=== PATIENT | female | born 1995 | race Caucasian/White ===

== ENCOUNTER 2018-01-21 19:06 | Inpatient (IN) | payer OTHER ==
[2018-01-21] MEDS ORDERED: PROMETHAZINE HCL 25 MG/1 ML VIAL IVPUSH ONE (20:22)
[2018-01-21] MEDS ORDERED: BUTORPHANOL TARTRATE 1 MG/ML VIAL IVPB ONE (20:30)
[2018-01-21 20:48] LABS: BASO % 0.2 % (0-2.0); EOS % 0.4 % (0-4.5); HEMOGLOBIN 12.2 GM/dL (10.7-15.3); LYMPH % 20.9 % (8-40); MCH 31.7 pg (25.7-33.7); MCHC 34.7 g/dl (32.0-36.0); MEAN CELL VOLUME 91.3 fl (80-96); MEAN PLT VOLUME 9.6 fl (7.5-11.1); MONO % 7.8 % (3.8-10.2); NEUT % 70.7 % (42.8-82.8); PLATELET COUNT 230 K/MM3 (134-434); RBC 3.83 M/mm3 (3.60-5.2); RDW 13.7 % (11.6-15.6); WHITE BLOOD COUNT 9.9 K/mm3 (4.0-10.0)
[2018-01-21 20:58] LABS: INR 0.91 (0.82-1.09); PROTHROMBIN TIME (PATIENT) 10.3 SEC (9.7-13.0)
[2018-01-21 20:59] VITALS: BMI 37.4
[2018-01-21 21:01] LABS: ACTIVATED PTT 25.1 SECONDS (25.2-36.5)
[2018-01-21 21:06] LABS: ANION GAP 12 (8-16); BLOOD UREA NITROGEN 16 mg/dL (7-18); CHLORIDE 108 mmol/L (98-107); CO2 22 mmol/L (21-32); CREATININE 0.8 mg/dL (0.55-1.02); GLUCOSE,RANDOM 130 mg/dL (74-106); POTASSIUM 4.1 mmol/L (3.5-5.1); SODIUM 142 mmol/L (136-145)
[2018-01-21] MEDS ORDERED: DINOPROSTONE 10 MG VAGINAL SUPPOSITORY VG ONE (21:15)
[2018-01-21] MEDS ORDERED: TUBERCULIN PPD 5 TU/0.1ML SYRINGE (IN PATIENT USE ONLY) ID ONE (21:45)
[2018-01-21] MEDS: DEXTROSE 5%-LACTATED RINGERS 1,000 ML IV SCH (22:02)
--- NOTE | 2018-01-21 22:06 | HP ---
Past Medical History - Admission Chief Complaint: Here for elective labor induction. History of Present Illness: 22 y/o with SIUP at 39 weeks here for elective labor induction. complicated by obesity. PT with some pruritis, negative Bile acids X 2. Otherwise no complaints/issues. History Source: Patient, Medical Record Limitations to Obtaining History: No Limitations - Past Medical History Cardiovascular: No: HTN Pulmonary: No: Asthma Gastrointestinal: No: GERD, Inflamatory Bowel Disease ...: 1 ...Para: 0 ...Term: 0 ...: 0 ...Spon : 0 ...Induced : 0 ...Multiple Gestation: 0 ...LMP: 04/09/17 ... Weeks Gestation by Dates: 41.0 ...EDC by Dates: 01/14/18 ...EDC by Sono: 01/27/18 Infectious Disease: No: HIV, MRSA, STD's Psych: No: Bipolar, Depression - Past Surgical History Past Surgical History: Yes: None Hx Myomectomy: No Hx Transabdominal Cerclage: No - Smoking History Smoking history: Never smoked Have you smoked in the past 12 months: No - Alcohol/Substance Use Hx Alcohol Use: No History of Substance Use: reports: None - Social History History of Recent Travel: No Home Medications - Allergies Allergies/Adverse Reactions: Allergies Allergy/AdvReac Type Severity Reaction Status Date / Time No Known Allergies Allergy Verified 01/22/18 09:57 - Home Medications Home Medications: Ambulatory Orders NK [No Known Home Medication] 01/22/18 Review of Systems - Review of Systems Constitutional: reports: No Symptoms Eyes: reports: No Symptoms HENT: reports: No Symptoms Neck: reports: No Symptoms Cardiovascular: reports: No Symptoms Respiratory: reports: No Symptoms Gastrointestinal: reports: No Symptoms Genitourinary: reports: No Symptoms Breasts: reports: No Symptoms Reported Musculoskeletal: reports: No Symptoms Integumentary: reports: No Symptoms Neurological: reports: No Symptoms Endocrine: reports: No Symptoms Hematology/Lymphatic: reports: No Symptoms Psychiatric: reports: No Symptoms Physical Exam - Maternity Vital Signs: Vital Signs Temperature 98.2 F 01/21/18 19:06 Pulse Rate 91 H 01/21/18 19:06 Respiratory Rate 20 01/21/18 19:06 Blood Pressure 139/84 01/21/18 19:06 O2 Sat by Pulse Oximetry (%) Constitutional: Yes: Well Nourished, No Distress, Calm Eyes: Yes: WNL HENT: Yes: WNL Neck: Yes: WNL Breast(s): Yes: WNL - Abdominal Exam/OB Fundal Height: 39 Number of Fetuses: Single Presentation: Vertex Contractions: No Category: I Accelerations: Uniform Decelerations: None - Vaginal Exam/OB Vaginal Bleediing: No Dilatation (cm): 1 Effacement (%): 70 Amniotic Membrane Status: Intact Presentation: Vertex/Position - Physical Exam Extremities: Yes: WNL Edema: LLE: Trace, RLE: Trace Psychiatric: Yes: Alert, Oriented - Labs Lab Results: CBC, BMP 01/21/18 20:20 01/21/18 20:20 Hemorrhage Risk Assessment - Risk Factors Medium Risk Factors: Yes: None High Risk Factors: Yes: None Risk Score: 1 Risk Level: Medium Risk Problem List - Problems (1) Term Code(s): Z34.80 - ENCOUNTER FOR SUPRVSN OF NORMAL , UNSP TRIMESTER (2) Elective induction of labor planned Code(s): JMM6077 - (3) Encounter for induction of labor Code(s): Z34.90 - ENCNTR FOR SUPRVSN OF NORMAL , UNSP, UNSP TRIMESTER Assessment/Plan SIUP at 39 weeks, elective labor induction FHTs category 1 cervidil placed at 1930
[2018-01-22] MEDS: PRENATAL VITAMINS W/ FOLIC ACID TABLET (FP) PO SCH (09:46)
[2018-01-22] MEDS ORDERED: DHA PO SCH (10:00)
[2018-01-22] MEDS ORDERED: DSS PO SCH (10:00)
[2018-01-22] MEDS: DEXTROSE 5%-LACTATED RINGERS 1,000 ML IV SCH ×2 (10:00→16:00)
[2018-01-22] MEDS ORDERED: [UNRECOGNIZED DRUG - OTHER] PO SCH (10:00)
--- NOTE | 2018-01-22 10:11 | PN ---
Ante-Partal Exam - Subjective Subjective: Pt felt cramping with cervidil overnight. Having slight cramping now. Vital Signs: Vital Signs Temperature 98.0 F 01/22/18 08:00 Pulse Rate 83 01/22/18 09:00 Respiratory Rate 18 01/22/18 09:00 Blood Pressure 119/80 01/22/18 09:00 O2 Sat by Pulse Oximetry (%) Bleeding: No Headache: No Visual changes: No Right upper quadrant pain: No Pain (scale 1-10): 1 - Contractions Contractions: Yes Regularity: Irregular - Exam during Labor Heart Rate: 145 Variability: Moderate Category: I Monitor Decelerations: None Exam: Vaginal Dilatation (cm): 2.5 Effacement (%): 90 Amniotic Membrane Status: Intact Presentation: Vertex Station: -2 - Assessment/Plan Assessment/Plan: FHR cat 1 to start pitocin
[2018-01-22] MEDS ORDERED: OXYTOCIN 30 UNITS in 0.9% NS 30 UNIT/500 ML INFUS.BAG IVPB ONE (10:29)
[2018-01-22] MEDS: OXYTOCIN 30 UNITS in 0.9% NS 30 UNIT/500 ML INFUS.BAG IVPB SCH (10:30)
[2018-01-22] MEDS ORDERED: BUTORPHANOL TARTRATE 1 MG/ML VIAL ONE ×2 (22:27)
[2018-01-22] MEDS ORDERED: PROMETHAZINE HCL 25 MG/1 ML VIAL ONE (22:27)
[2018-01-23] MEDS: DEXTROSE 5%-LACTATED RINGERS 1,000 ML IV SCH ×2 (01:20→09:44)
[2018-01-23] MEDS ORDERED: BUTORPHANOL TARTRATE 1 MG/ML VIAL IVPB PRN (09:22)
[2018-01-23] MEDS ORDERED: PROMETHAZINE HCL 25 MG/1 ML VIAL IVPUSH ONE (09:22)
--- NOTE | 2018-01-23 10:35 | PN ---
Ante-Partal Exam - Subjective Subjective: Pt with pain overnight, recieved stadol/phenergan overnight for pain relief. Vital Signs: Vital Signs Temperature 98.6 F 01/23/18 10:00 Pulse Rate 97 H 01/23/18 10:00 Respiratory Rate 18 01/23/18 10:00 Blood Pressure 130/71 01/23/18 10:00 O2 Sat by Pulse Oximetry (%) Bleeding: Yes Bleeding Description: Mild Headache: No Visual changes: No Right upper quadrant pain: No - Contractions Contractions: Yes Regularity: Regular Intensity: Strong - Exam during Labor Heart Rate: 150 Variability: Moderate Category: I Monitor Accelerations: Present Monitor Decelerations: None Exam: Vaginal Dilatation (cm): 6 Effacement (%): 90 Amniotic Membrane Status: Bulging Station: -1 Remarks: AROM for light meconium stained fluid - Assessment/Plan Assessment/Plan: elective IOL FHR cat 1 AROM for light meconium continue pitocin stadol/phenergan PRN epidural prn continue active management
[2018-01-23] MEDS ORDERED: FENTANYL/BUPIVACAINE/NS/PF - PCEA - 50 ML DISP.SYRIN EP ONE ×3 (10:44→18:17)
[2018-01-23] MEDS: ELECTROLYTE-148 SOLN 1,000 ML IV SCH ×2 (10:45→16:44)
[2018-01-23] MEDS ORDERED: NALOXONE HCL 0.4 MG/ML VIAL IVPUSH PRN (10:51)
[2018-01-23] MEDS ORDERED: FENTANYL/BUPIVACAINE/NS/PF - PCEA - 50 ML DISP.SYRIN EP SCH (11:00)
[2018-01-23] MEDS: PRENATAL VITAMINS W/ FOLIC ACID TABLET (FP) PO SCH (11:38)
--- NOTE | 2018-01-23 16:32 | PN ---
Ante-Partal Exam - Subjective Subjective: Pt comfortable with epidural. Vital Signs: Vital Signs Temperature 98.5 F 01/23/18 16:00 Pulse Rate 90 01/23/18 16:15 Respiratory Rate 18 01/23/18 16:15 Blood Pressure 128/69 01/23/18 16:15 O2 Sat by Pulse Oximetry (%) 98 01/23/18 16:15 Bleeding: No Headache: No Visual changes: No Right upper quadrant pain: No Pain (scale 1-10): 0 - Contractions Contractions: Yes Regularity: Regular Intensity: Mild/Mod Monitor Mode: External - Exam during Labor Heart Rate: 155 Variability: Moderate Category: I Monitor Accelerations: Absent Monitor Decelerations: None Exam: Vaginal Dilatation (cm): 7.5 Effacement (%): 90 Amniotic Membrane Status: Ruptured Presentation: Vertex Station: -1 - Assessment/Plan Assessment/Plan: Continue pitocin s/p epidural
[2018-01-23] MEDS: OXYTOCIN 30 UNITS in 0.9% NS 30 UNIT/500 ML INFUS.BAG IVPB SCH (19:15)
[2018-01-23] MEDS ORDERED: OXYTOCIN 20 UNITS in 0.9% NS 20 UNIT/1,000 ML INFUS.BAG IV ONE ×2 (20:14→23:22)
[2018-01-23] MEDS ORDERED: LIDOCAINE HCL 1% PRESERVATIVE FREE - 30ML VIAL ONE (20:14)
--- NOTE | 2018-01-23 20:39 | PN ---
Ante-Partal Exam - Subjective Subjective: Pt feeling good Vital Signs: Vital Signs Temperature 99.2 F 01/23/18 18:15 Pulse Rate 102 H 01/23/18 19:45 Respiratory Rate 18 01/23/18 19:45 Blood Pressure 137/74 01/23/18 19:45 O2 Sat by Pulse Oximetry (%) 100 01/23/18 19:45 Bleeding: No Headache: No Visual changes: No Right upper quadrant pain: No - Contractions Contractions: Yes Regularity: Regular Intensity: Mild/Mod Monitor Mode: External - Exam during Labor Variability: Moderate Category: I Monitor Accelerations: Present Monitor Decelerations: None Exam: Vaginal Dilatation (cm): 10 Effacement (%): 100 Amniotic Membrane Status: Ruptured Amniotic Fluid: Meconium Stained Presentation: Vertex Station: 0 - Intrapartum Hemorrhage Risk Risk Score: 1 Risk Level: Medium Risk - Assessment/Plan Assessment/Plan: 2nd stage of labor Plan anticipate vaginal delivery
[2018-01-23] MEDS ORDERED: SODIUM BICARBONATE 8.4% - 50 ML ONE (21:46)
[2018-01-23] MEDS ORDERED: LIDO 2%/EPI 1:200000 PRESRVFRE (20 ML SDVIAL) ONE (21:46)
[2018-01-23] MEDS ORDERED: BUPIVACAINE 0.75% IN DEXTROSE/PF 2ML AMPULE NR ONE (21:59)
[2018-01-23] MEDS ORDERED: PHENYLEPHRINE HCL 10 MG/1 ML SINGLE DOSE VIAL ONE (22:01)
[2018-01-23] MEDS ORDERED: PROPOFOL 20 ML ONE (22:26)
[2018-01-23] MEDS ORDERED: SUCCINYLCHOLINE CHLORIDE 200 MG/10 ML VIAL ONE (22:26)
[2018-01-23] MEDS: OXYTOCIN 20 UNITS in 0.9% NS 20 UNIT/1,000 ML INFUS.BAG IV SCH (22:35)
[2018-01-23] MEDS ORDERED: DEXAMETHASONE SOD PHOSPHATE 4 MG/1 ML VIAL ONE (23:04)
[2018-01-23] MEDS ORDERED: METHYLERGONOVINE MALEATE 0.2 MG/1 ML AMP IM PRN (23:17)
[2018-01-23] MEDS ORDERED: IBUPROFEN 800 MG/8 ML IJ IVPB PRN (23:17)
--- NOTE | 2018-01-23 23:17 | OP ---
Operative Note - Note: Operative Date: 01/23/18 Pre-Operative Diagnosis: Failure to Descend. Nonreassuring tracing. IUP at 41 weeks Operation: Primary low transverse Section Findings: Live male Post-Operative Diagnosis: Same as Pre-op Surgeon: Maranda Howard Floral Assistant: Marcos Amor Anesthesia: General Estimated Blood Loss (mls): 800 Operative Report Dictated: Yes
[2018-01-23] MEDS ORDERED: MEPERIDINE HCL CARPU-JECT 50 MG/1 ML DISP.SYRIN IM PRN (23:22)
[2018-01-23] MEDS ORDERED: LABETALOL HCL 5 MG/1 ML (100MG/20 ML VIAL) IVPUSH ONE (23:23)
[2018-01-23] MEDS ORDERED: ONDANSETRON 4 MG/2 ML VIAL IVPUSH PRN (23:31)
[2018-01-23] MEDS ORDERED: ACETAMINOPHEN 1000 MG/100 ML VIAL (NON FORMULARY) IVPB PRN (23:32)
[2018-01-23 23:46] LABS: VENOUS PC02 49.9 mmHg (38-52); VENOUS PH 7.28 (7.32-7.42); VENOUS PO2 24.4 mmHg (28-48)
[2018-01-23 23:47] LABS: ARTERIAL BLD GAS O2 SATURATION 31.7 % (90-98.9); ARTERIAL BLOOD GAS BASE EXCESS -4.8 meq/l (-2-2); ARTERIAL BLOOD GAS PCO2 45.9 mmHg (35-45); ARTERIAL BLOOD GAS PO2 18.6 mmHg (80-100); ARTERIAL BLOOD GAS pH 7.3 (7.35-7.45)
[2018-01-24] MEDS: LABETALOL HCL 200 MG TABLET (FP) PO SCH ×3 (00:30→22:05)
[2018-01-24] MEDS ORDERED: LABETALOL HCL 200 MG TABLET (FP) ONE (00:36)
[2018-01-24] MEDS ORDERED: IBUPROFEN 800 MG/8 ML IJ IVPB ONE (00:49)
[2018-01-24] MEDS ORDERED: OXYTOCIN 20 UNITS in 0.9% NS 20 UNIT/1,000 ML INFUS.BAG IV ONE (01:32)
[2018-01-24] MEDS ORDERED: ceFAZolin SODIUM 1 GM VIAL ONE ×3 (02:20→17:10)
[2018-01-24] MEDS ORDERED: DEXTROSE 5%-WATER - 50 ML IVPB ONE ×3 (02:20→17:10)
[2018-01-24] MEDS: CEFAZOLIN 1 GM in DEXTROSE 5%-WATER - 50 ML IVPB SCH ×3 (02:26→17:15)
[2018-01-24] MEDS: OXYTOCIN 20 UNITS in 0.9% NS 20 UNIT/1,000 ML INFUS.BAG IV SCH (02:31)
[2018-01-24] MEDS ORDERED: MEPERIDINE HCL CARPU-JECT 25 MG/1 ML DISP.SYRIN IM PRN (06:57)
--- NOTE | 2018-01-24 06:59 | OP ---
DATE OF OPERATION: 01/23/2018 PREOPERATIVE DIAGNOSIS: Failure to descend, intrauterine at 41 weeks, and non-reassuring tracing. OPERATION: Low transverse section. POSTOPERATIVE DIAGNOSIS: Live male . SURGEON: Ralph Howard MD RADIO DISPATCHER: Angus Amor MD ANESTHESIA: General. ANESTHESIOLOGIST: Jessy Rodriguez DO FINDINGS: Live male , delivered in OP position, nose to mouth suction performed. Also findings of normal tubes and ovaries. PROCEDURE: Patient was taken to the operating room, placed in supine position, prepped and draped in the usual sterile fashion. Time-out was performed in accordance with hospital regulations. A Pfannenstiel skin incision was made with the scalpel. Cautery was then used to go through the layers of the abdominal wall to the level of the fascia. Fascia was cut in the midline, and cautery was then used to open the fascia in smiling fashion. Suyapa was then used to bluntly and sharply dissect the rectus muscle off the fascia. The muscle was split in the midline. Peritoneal cavity was then entered and carried up and downwards. Bladder retractor was then placed. Scalpel was then used to make a low transverse uterine incision. Incision was carried up with use of bandage scissors. A live male was delivered in OP position. Nose and mouth suction was performed. Shoulders were delivered without difficulty. The cord was clamped and cut. Cord blood obtained. Cord pH obtained. was handed to the cable tool operator. Placenta was manually extracted from the uterus. The uterus was exteriorized and cleaned with clean lap pads. Uterine incision was then closed using 0 Biosyn suture, first layer with continuous interlocking. Meanwhile, extension was noted and continuous stitch of the extension was done in imbricating stitch. Second layer with 0 Biosyn suture was then used. Hemostasis was achieved. The tubes and ovaries were noted to be normal. Uterus interiorized. Abdominal cavity was cleaned with clean lap pads. Peritoneum closed using 0 Biosyn suture. Muscles were approximated in the midline using 0 Biosyn suture. Fascia was then closed using 0 Vicryl suture in 2 parts. Subcutaneous was closed using 0 Biosyn suture, and skin was then closed using 3-0 Vicryl in subcuticular fashion. Wounds washed and dressed. Patient tolerated the procedure well. Estimated blood loss 800 mL. RALPH HOWARD M.D. KELLIE/[id number]
[2018-01-24] MEDS: FERROUS SO4 325 MG TABLET (FP) PO SCH ×2 (08:00→17:13)
[2018-01-24 08:32] LABS: HEMOGLOBIN 8.3 GM/dL (10.7-15.3); LYMPH % 4.2 % (8-40); MCH 31.9 pg (25.7-33.7); MCHC 34.4 g/dl (32.0-36.0); MEAN CELL VOLUME 92.5 fl (80-96); NEUT % 90.8 % (42.8-82.8); PLATELET COUNT 148 K/MM3 (134-434); RBC 2.59 M/mm3 (3.60-5.2); RDW 13.8 % (11.6-15.6); WHITE BLOOD COUNT 23.6 K/mm3 (4.0-10.0)
--- NOTE | 2018-01-24 09:45 | PN ---
Progress Note, Physician Chief Complaint: day #1 s/p spinal for Csection - Current Medication List Current Medications: Active Medications Acetaminophen (Tylenol -) 650 mg PO Q4H PRN PRN Reason: FEVER Acetaminophen (Ofirmev Injection -) 1,000 mg IVPB Q6H PRN PRN Reason: PAIN LEVEL 4 - 6 OR FEVER Bisacodyl (Dulcolax Suppository -) 10 mg RC PRN PRN PRN Reason: CONSTIPATION Diphenhydramine HCl (Benadryl Injection -) 25 mg IVPUSH Q4H PRN PRN Reason: Pruritis Diphtheria/Tetanus/Acell Pertussis (Boostrix -) 0.5 ml IM .ONCE ONE Stop: 01/25/18 10:01 Enoxaparin Sodium (Lovenox -) 40 mg SQ DAILY LIZZ Ferrous Sulfate (Feosol -) 325 mg PO BIDWM LIZZ Oxytocin/Sodium Chloride (Normal Saline+30 Units Oxytocin) 30 unit in 500 mls @ 1 mls/hr IVPB TITR LIZZ; Protocol Last Admin: 01/23/18 19:15 Dose: 0.48 unit/hr, 8 mls/hr Cefazolin Sodium 1 gm/ (Dextrose) 50 mls @ 100 mls/hr IVPB Q8H-IV LIZZ Stop: 01/25/18 01:59 Last Admin: 01/24/18 02:26 Dose: 100 mls/hr Oxytocin/Sodium Chloride (Normal Saline+20 Units Oxytocin -) 20 unit in 1,000 mls @ 125 mls/hr IV ASDIR LIZZ Last Admin: 01/24/18 02:31 Dose: 125 mls/hr Ibuprofen (Caldolor Injection -) 800 mg IVPB Q8H PRN PRN Reason: PAIN LEVEL 4 - 6 Last Admin: 01/24/18 00:45 Dose: 800 mg Ibuprofen (Motrin -) 600 mg PO Q4H PRN PRN Reason: PAIN LEVEL 1 - 3 Labetalol HCl (Normodyne -) 200 mg PO BID [facility] Last Admin: 01/24/18 00:30 Dose: 200 mg Meperidine HCl (Demerol Injection -) 75 mg IM Q6H PRN PRN Reason: PAIN LEVEL 7 - 10 Methylergonovine Maleate (Methergine Injection -) 0.2 mg IM Q4H PRN PRN Reason: Excessive Bleeding (L&D) Naloxone HCl (Narcan -) 0.4 mg IVPUSH PRN PRN PRN Reason: Sedation Ondansetron HCl (Zofran Injection) 4 mg IVPUSH Q4H PRN PRN Reason: NAUSEA Oxycodone HCl (Roxicodone -) 5 mg PO Q4H PRN PRN Reason: PAIN LEVEL 4 - 6 Oxycodone HCl (Roxicodone -) 10 mg PO Q4H PRN PRN Reason: PAIN LEVEL 7 - 10 Multivit/Folic Acid/Iron ( Vitamins (Sjr) -) 1 tab PO DAILY LIZZ Last Admin: 01/23/18 11:38 Dose: Not Given Simethicone (Mylicon -) 80 mg PO Q4H PRN PRN Reason: GAS - Objective Vital Signs: Vital Signs Temperature 98.3 F 01/24/18 06:00 Pulse Rate 96 H 01/24/18 06:00 Respiratory Rate 18 01/24/18 06:00 Blood Pressure 121/70 01/24/18 06:00 O2 Sat by Pulse Oximetry (%) 97 01/24/18 00:20 Labs: CBC, BMP 01/24/18 07:40 01/21/18 20:20 INR, PTT INR 0.91 (0.82-1.09) 01/21/18 20:20 Assessment/Plan Doing well after spinal. No back pain, SALGUERO, N/V
[2018-01-24] MEDS: PRENATAL VITAMINS W/ FOLIC ACID TABLET (FP) PO SCH (10:00)
[2018-01-24] MEDS: SIMETHICONE 80 MG TAB.CHEW (FP) PO PRN ×2 (10:26→17:13)
[2018-01-24] MEDS: ACETAMINOPHEN 325 MG TABLET (FP) PO PRN ×2 (10:26→17:13)
[2018-01-24] MEDS: IBUPROFEN 600 MG TABLET (FP) PO PRN ×2 (10:27→17:14)
[2018-01-24 13:02] LABS: ANISOCYTOSIS 1+; MACROCYTOSIS 0; PLATELET ESTIMATE DECREASED
--- NOTE | 2018-01-24 13:03 | PN ---
Post Progress Note - Subjective Subjective: Pt seen/evaluated and doing well. Pain controlled. Tolerating diet (clears). Marsh catheter removed this a.m., awaiting void. No flatus yet. VB minimal. Type of Delivery: Primary C/S Vital Signs: Vital Signs Temperature 98.5 F 01/24/18 09:40 Pulse Rate 100 H 01/24/18 09:40 Respiratory Rate 18 01/24/18 09:40 Blood Pressure 120/58 01/24/18 10:00 O2 Sat by Pulse Oximetry (%) 97 01/24/18 00:20 Uterus: Yes: Fundus Firm Incision: Yes: Dressing dry and intact Abdomen/GI: Yes: Abdomen soft. No: Tender, Passing flatus Lochia, amount: Small Extremities: Yes: Calves non-tender Perineum: Yes: Intact Activity: Ambulating - Labs Labs: CBC WBC 23.6 K/mm3 (4.0-10.0) H D 01/24/18 07:40 RBC 2.59 M/mm3 (3.60-5.2) L D 01/24/18 07:40 Hgb 8.3 GM/dL (10.7-15.3) L D 01/24/18 07:40 Hct 24.0 % (32.4-45.2) L D 01/24/18 07:40 MCV 92.5 fl (80-96) 01/24/18 07:40 MCH 31.9 pg (25.7-33.7) 01/24/18 07:40 MCHC 34.4 g/dl (32.0-36.0) 01/24/18 07:40 RDW 13.8 % (11.6-15.6) 01/24/18 07:40 Plt Count 148 K/MM3 (134-434) D 01/24/18 07:40 MPV 9.0 fl (7.5-11.1) 01/24/18 07:40 Absolute Neuts (auto) 21.4 # 01/24/18 07:40 Neutrophils % 90.8 % (42.8-82.8) H 01/24/18 07:40 Lymphocytes % 4.2 % (8-40) L D 01/24/18 07:40 Monocytes % 5.0 % (3.8-10.2) 01/24/18 07:40 Eosinophils % 0.0 % (0-4.5) D 01/24/18 07:40 Basophils % 0.0 % (0-2.0) 01/24/18 07:40 Nucleated RBC % 0 % (0-0) 01/24/18 07:40 Problem List - Problems (1) Term Code(s): Z34.80 - ENCOUNTER FOR SUPRVSN OF NORMAL , UNSP TRIMESTER (2) Elective induction of labor planned Code(s): ADS9308 - (3) Encounter for induction of labor Code(s): Z34.90 - ENCNTR FOR SUPRVSN OF NORMAL , UNSP, UNSP TRIMESTER Assessment/Plan 22 yo POD#1 s/p primary delivery AFVSS Hgb 8.3, asymptomatic, continue vitamins Advance diet as tolerated encourage ambulation routine care
[2018-01-24] MEDS ORDERED: oxyCODONE HCL 5 MG TABLET PO PRN (23:17)
[2018-01-24] MEDS ORDERED: BISACODYL 10 MG SUPP.RECT RC PRN (23:18)
[2018-01-25] MEDS: ACETAMINOPHEN 325 MG TABLET (FP) PO PRN ×3 (05:53→22:24)
[2018-01-25] MEDS: SIMETHICONE 80 MG TAB.CHEW (FP) PO PRN ×4 (05:53→22:24)
[2018-01-25] MEDS: oxyCODONE HCL 5 MG TABLET PO PRN ×4 (05:53→22:24)
[2018-01-25] MEDS: FERROUS SO4 325 MG TABLET (FP) PO SCH ×2 (08:00→17:15)
[2018-01-25] MEDS: PRENATAL VITAMINS W/ FOLIC ACID TABLET (FP) PO SCH (09:37)
[2018-01-25] MEDS: ENOXAPARIN NA (PORCINE) 40 MG/0.4 ML DISP.SYRIN SQ SCH (09:37)
[2018-01-25] MEDS ORDERED: DIPHTH,PERTUSS(ACELL),TET 0.5 ML DISP.SYRIN IM ONE (10:00)
[2018-01-25] MEDS: IBUPROFEN 600 MG TABLET (FP) PO PRN ×2 (10:24→17:15)
[2018-01-25] MEDS: LABETALOL HCL 200 MG TABLET (FP) PO SCH ×2 (10:26→22:24)
--- NOTE | 2018-01-25 11:58 | PATH ---
Surgical Pathology Report Patient Name: ABNER CALVO [facility]. Rec. 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 Specimen(s) Received PLACENTA Clinical History 41 weeks, , failure to descend, NF tracing Final Diagnosis PLACENTA: THIRD TRIMESTER PLACENTA. TRIVASCULAR CORD. MEMBRANES WITH NO DIAGNOSTIC ABNORMALITIES. Electronically Signed Denise Sherwood M.D. Gross Description The specimen is received fresh labeled placenta and is a 387 gram, 14.5 x 13.5 x 2.4 cm. placenta with attached membranes and umbilical cord. The attached membranes are amador, translucent with focal opacities and insert marginally. The umbilical cord measures 13 cm. in length and averages 1.2 cm. in diameter. The cord inserts eccentrically, 4 cm. to the nearest margin. No true knots or strictures are identified. Cut surface of the umbilical cord reveals 3 vessels. The surface is davis green, meconium stained with minimal fibrin deposition and appropriate caliber vessels. The maternal surface is red-brown and intact. Sectioning reveals red-brown, spongy parenchyma. No lesions are identified. Manager Family sections are submitted in three cassettes as follows: 1- membrane rolls and umbilical cord; 2-3- full thickness sections of placenta. /01/24/[address] [facility]01/24/2018
--- NOTE | 2018-01-25 13:41 | PN ---
Post Progress Note - Subjective Subjective: 22 yo Para 1 status post primary , seen and evaluated. Doing well. Post Day: 1 Type of Delivery: Primary C/S Vital Signs: Vital Signs Temperature 98.7 F 01/25/18 08:37 Pulse Rate 105 H 01/25/18 08:37 Respiratory Rate 18 01/25/18 08:37 Blood Pressure 125/67 01/25/18 10:00 O2 Sat by Pulse Oximetry (%) 97 01/24/18 00:20 Breast Exam: Yes: Soft Uterus: Yes: Fundus @ umbilicus Incision: Yes: Other (Steri strips in place) Abdomen/GI: Yes: Tolerating PO Lochia: Yes: Rubra Lochia, amount: Small Extremities: Yes: Calves non-tender Perineum: Yes: Intact Activity: Ambulating - Labs Labs: CBC WBC 23.6 K/mm3 (4.0-10.0) H D 01/24/18 07:40 RBC 2.59 M/mm3 (3.60-5.2) L D 01/24/18 07:40 Hgb 8.3 GM/dL (10.7-15.3) L D 01/24/18 07:40 Hct 24.0 % (32.4-45.2) L D 01/24/18 07:40 MCV 92.5 fl (80-96) 01/24/18 07:40 MCH 31.9 pg (25.7-33.7) 01/24/18 07:40 MCHC 34.4 g/dl (32.0-36.0) 01/24/18 07:40 RDW 13.8 % (11.6-15.6) 01/24/18 07:40 Plt Count 148 K/MM3 (134-434) D 01/24/18 07:40 MPV 9.0 fl (7.5-11.1) 01/24/18 07:40 Absolute Neuts (auto) 21.4 # 01/24/18 07:40 Neutrophils % 90.8 % (42.8-82.8) H 01/24/18 07:40 Neutrophils % (Manual) 85.0 % (42.8-82.8) H 01/24/18 07:40 Band Neutrophils % 10.0 % 01/24/18 07:40 Lymphocytes % 4.2 % (8-40) L D 01/24/18 07:40 Lymphocytes % (Manual) 3.0 % (8-40) L 01/24/18 07:40 Monocytes % 5.0 % (3.8-10.2) 01/24/18 07:40 Monocytes % (Manual) 2 % (3.8-10.2) L 01/24/18 07:40 Eosinophils % 0.0 % (0-4.5) D 01/24/18 07:40 Eosinophils % (Manual) 0.0 % (0-4.5) 01/24/18 07:40 Basophils % 0.0 % (0-2.0) 01/24/18 07:40 Basophils % (Manual) 0.0 % (0-2.0) 01/24/18 07:40 Myelocytes % (Man) 0 % (0-2) 01/24/18 07:40 Promyelocytes % (Man) 0 % (0-2) 01/24/18 07:40 Blast Cells % (Manual) 0 % (0-0) 01/24/18 07:40 Nucleated RBC % 0 % (0-0) 01/24/18 07:40 Metamyelocytes 0 % (0-2) 01/24/18 07:40 Hypochromia 0 01/24/18 07:40 Platelet Estimate Decreased 01/24/18 07:40 Polychromasia 0 01/24/18 07:40 Poikilocytosis 0 01/24/18 07:40 Anisocytosis 1+ 01/24/18 07:40 Microcytosis 2+ 01/24/18 07:40 Macrocytosis 0 01/24/18 07:40 Problem List - Problems (1) Status post primary low transverse section Code(s): Z98.891 - HISTORY OF UTERINE SCAR FROM PREVIOUS SURGERY Assessment/Plan Status post primary Stable Ambulation Analgesia as needed Continue routine post op care
[2018-01-25] MEDS: OXYTOCIN 20 UNITS in 0.9% NS 20 UNIT/1,000 ML INFUS.BAG IV SCH (18:57)
[2018-01-25] MEDS: OXYTOCIN 30 UNITS in 0.9% NS 30 UNIT/500 ML INFUS.BAG IVPB SCH ×2 (18:57→18:58)
[2018-01-26] MEDS: SIMETHICONE 80 MG TAB.CHEW (FP) PO PRN ×3 (06:11→20:40)
[2018-01-26] MEDS: oxyCODONE HCL 5 MG TABLET PO PRN ×4 (06:11→20:41)
[2018-01-26] MEDS: ACETAMINOPHEN 325 MG TABLET (FP) PO PRN ×4 (06:11→20:40)
[2018-01-26 08:17] LABS: BASO % 0.2 % (0-2.0); EOS % 0.5 % (0-4.5); HEMATOCRIT 21.8 % (32.4-45.2); HEMOGLOBIN 7.5 GM/dL (10.7-15.3); LYMPH % 18.1 % (8-40); MCHC 34.5 g/dl (32.0-36.0); MEAN CELL VOLUME 92.9 fl (80-96); MEAN PLT VOLUME 8.1 fl (7.5-11.1); MONO % 5.5 % (3.8-10.2); NEUT % 75.7 % (42.8-82.8); PLATELET COUNT 186 K/MM3 (134-434); RBC 2.34 M/mm3 (3.60-5.2); WHITE BLOOD COUNT 13.5 K/mm3 (4.0-10.0)
[2018-01-26] MEDS: FERROUS SO4 325 MG TABLET (FP) PO SCH ×2 (08:21→17:51)
--- NOTE | 2018-01-26 09:08 | DS ---
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 No: Rectal Bleeding, Vomiting ....Post : Yes: Uterus firm, Uterus non-tender Wound/Incision: Yes: Clean/Dry, Well Approximated, Sutures Intact Neurological: Yes: Alert, Oriented Psychiatric: Yes: Alert, Oriented Labs: CBC, BMP 01/26/18 07:45 01/21/18 20:20 Delivery - Delivery Section: Primary, Low Flap Transverse Type of Anesthesia: Epidural, General EBL (cc): 800 Delivery, Single - Stages of Labor Date 1st Stage Initiatied: 01/22/18 Time 1st Stage Initiated: 10:30 Date 2nd Stage Initiated: 01/23/18 Time 2nd Stage Initiated: 20:25 Date of Delivery: 01/23/18 Time of Delivery: 22:34 Time Placenta Delivered: 22:35 - Condition of Tobacco Dipper/Sys Dir Present: Yes Name: Hannah Marquez Infant Gender: Male Weight: 8 lb 13 oz Position: OP Total Hours ROM (Hrs/Mins): 13Hrs/39Mins - 1 Minute Total Score: 8 5 Minutes Total Score: 9 - Feeding Plan Initial Plan: Elected not to breastfeed exclusively throughout hospitalization Discharge Summary Reason For Visit: ADMIT LABOR Current Active Problems Elective induction of labor planned (Acute) Encounter for induction of labor (Acute) Status post primary low transverse section (Acute) Term (Acute) Procedures: Principal: Primary section Hospital Course: Pt admitted on 01/21 for elective labor induction. After approx 48 hours, pt did fully dilate however had arrest of descent and underwent a primary delivery (see operative report for details of procedure). Pt had post op anemia otherwise an uncomplicated post course and was discharged home on post op day 2. Condition: Good - Instructions Diet, Activity, Other Instructions: Physical activity Resume your normal everyday activity as tolerated no heavy lifting or exercise until seen by your surgeon. You may walk unlimited johnson of and climb stairs. You may resume driving the car when you feel safe and comfortable behind the wheel. No sexual activity as instructed. Wound care If you have a bandage, leave it on, and keep dry for 48-72 hours. After that time discard the outer bandage. If they are tapes on the skin under the out of bandage leave them in place. They will peel off in the next 7 to 10 days. Do Not Peel them off. You may shower the day after surgery. If there are tapes present on the skin, you may shower over them. Diet There are no dietary restrictions. Eat healthy, high-fiber foods. Drink 6 to 8 glasses of liquid each day. This will assist in keeping your bowels are regular. Pain management You may take Tylenol or acetaminophen or Ibuprofen (for example, Motrin, Advil etc.) from my pain prescription medication is ordered should be taken as prescribed for moderate to severe pain. Call MD for any of the following: Severe pain not relieved by medication Fever of 101 or higher Excessive bleeding or drainage on dressing Inability to urinate Referrals: Ani Lees DO [Staff Physician] - Disposition: HOME - Home Medications Comprehensive Discharge Medication List: Ambulatory Orders NK [No Known Home Medication] 01/22/18
[2018-01-26] MEDS: PRENATAL VITAMINS W/ FOLIC ACID TABLET (FP) PO SCH (09:27)
[2018-01-26] MEDS: ENOXAPARIN NA (PORCINE) 40 MG/0.4 ML DISP.SYRIN SQ SCH (09:27)
[2018-01-26] MEDS: LABETALOL HCL 200 MG TABLET (FP) PO SCH ×2 (09:57→22:02)
[2018-01-26] MEDS: DOCUSATE SODIUM 100 MG CAPSULE (FP) PO SCH ×2 (11:04→22:02)
[2018-01-27] MEDS: oxyCODONE HCL 5 MG TABLET PO PRN ×3 (02:58→16:36)
[2018-01-27] MEDS: ACETAMINOPHEN 325 MG TABLET (FP) PO PRN ×3 (02:59→16:37)
[2018-01-27] MEDS: FERROUS SO4 325 MG TABLET (FP) PO SCH ×2 (08:28→16:38)
[2018-01-27 09:44] VITALS: TEMP 98.9
[2018-01-27] MEDS: DOCUSATE SODIUM 100 MG CAPSULE (FP) PO SCH (09:44)
[2018-01-27] MEDS: LABETALOL HCL 200 MG TABLET (FP) PO SCH (09:44)
[2018-01-27] MEDS: PRENATAL VITAMINS W/ FOLIC ACID TABLET (FP) PO SCH (09:44)
[2018-01-27] MEDS: ENOXAPARIN NA (PORCINE) 40 MG/0.4 ML DISP.SYRIN SQ SCH (09:44)
[2018-01-27 11:01] LABS: BASO % 0.3 % (0-2.0); EOS % 0.8 % (0-4.5); HEMATOCRIT 21.1 % (32.4-45.2); HEMOGLOBIN 7.2 GM/dL (10.7-15.3); LYMPH % 14.1 % (8-40); MCH 31.7 pg (25.7-33.7); MEAN CELL VOLUME 93.1 fl (80-96); MEAN PLT VOLUME 8.1 fl (7.5-11.1); MONO % 6.7 % (3.8-10.2); NEUT % 78.1 % (42.8-82.8); PLATELET COUNT 215 K/MM3 (134-434); RBC 2.27 M/mm3 (3.60-5.2); RDW 14.3 % (11.6-15.6); WHITE BLOOD COUNT 11.5 K/mm3 (4.0-10.0)
[2018-01-27] MEDS: SIMETHICONE 80 MG TAB.CHEW (FP) PO PRN ×2 (11:26→16:38)
[2018-01-27 14:53] VITALS: BP 121/73; PULSE 100
== END 2018-01-27 19:45 | disposition home or self-care (01) | DRG 540 ==
LOC: JLDR 19:06 → J3W 01-24 01:58
PROVIDERS: ADMIT Obstetrics & Gynecology; ATTEND Obstetrics & Gynecology
PROC: 3E0P7VZ Introduction of Hormone into Female Reproductive, Via Natural or Artificial Opening (ICD-10-PCS; 2018-01-21)
PROC: 10D00Z1 Extraction of Products of Conception, Low, Open Approach (ICD-10-PCS; principal; 2018-01-23)
DX: O62.0 Primary inadequate contractions (principal); O76 Abnormality in fetal heart rate and rhythm complicating labor and delivery; O99.214 Obesity complicating childbirth; E66.8 Other obesity; Z68.37 Body mass index [BMI] 37.0-37.9, adult; O90.81 Anemia of the puerperium; Z3A.41 41 weeks gestation of pregnancy; Z37.0 Single live birth
CPT/HCPCS: 36415; 36600; 80048; 82803; 85025; 85610; 85730; 86593; 86762; 86850; 86900; 86901; 87389; 88307-TC; 90715